=== PATIENT | male | born 1990 ===

== ENCOUNTER 2016-05-12 21:25 | Emergency (ER) | payer MEDICAID ==
[2016-05-12] MEDS ORDERED: IOPAMIDOL 370 (76%) 100 ML VIAL IV ONE (21:26)
[2016-05-12 22:27] LABS: BASO % 0.6 % (0.2-1.0); EOS # 0.1 (0.0-0.5); EOS % 1.4 % (0.9-2.9); HEMATOCRIT 49.1 % (32.0-52.0); HEMOGLOBIN 16.6 gm/l (14.0-18.0); IMM NEUT% 0.2 % (0-1); LYMPH # 2.3 (1.0-4.8); LYMPH % 46.9 % (15-45); MEAN CELL VOLUME 88.9 fl (80.0-94.0); MEAN CORPUSCULAR HEMOGLOBIN 30.1 pg (27.0-31.0); MEAN CORPUSCULAR HGB CONC 33.8 g/dl (33.0-37.0); MEAN PLATELET VOLUME 10.6 fl (7.4-10.4); MONO # 0.6 (0.0-0.8); MONO % 11.6 % (4-12); NEUT % 39.3 % (43-75); PLATELET COUNT 221 K/mm3 (130-400); RED CELL DISTRIBUTION WIDTH 12.5 % (11.5-14.5)
[2016-05-12 22:38] LABS: ALB/GLOB RATIO 1.2 (>1.0); ALBUMIN 4.9 gm/dL (3.5-5.7); CALCIUM 10.7 mg/dL (8.6-10.3)
[2016-05-12 22:38] LABS: SPECIFIC GRAVITY 1.025 (1.001-1.030); URINE BILIRUBIN NEGATIVE (NEGATIVE); URINE BLOOD NEGATIVE (NEGATIVE); URINE GLUCOSE (UA) NEGATIVE (NEGATIVE); URINE LEUKOCYTE ESTERASE NEGATIVE (NEGATIVE); URINE NITRITE NEGATIVE (NEGATIVE); URINE PROTEIN 1+ (NEGATIVE); URINE UROBILINOGEN NORMAL (0-1 mg/dl)
[2016-05-12 22:39] LABS: URINE APPEARANCE CLEAR; URINE COLOR YELLOW
[2016-05-12 22:58] LABS: AMPHETAMINES/METHAMPHETAMINES NEGATIVE (NEGATIVE); COCAINE NEGATIVE (NEGATIVE); MARIJUANA POSITIVE (NEGATIVE); METHADONE NEGATIVE (NEGATIVE); OPIATES NEGATIVE (NEGATIVE); TRICYCLIC ANTIDEPRESSANTS NEGATIVE (NEGATIVE)
[2016-05-12 23:04] LABS: URINE AMORPHOUS SEDIMENT 1+ URATES; URINE BACTERIA 0; URINE EPITHELIAL CELLS 0-2 /hpf; URINE RBC 0 /hpf; URINE WBC 0-2 /hpf
[2016-05-12] MEDS ORDERED: PANTOPRAZOLE SODIUM 40 MG VIAL IV ONE (23:54)
[2016-05-13] MEDS ORDERED: KETOROLAC TROMETHAMINE 30 MG/ML 1 ML VIAL ONE (01:11)
--- NOTE | 2016-05-13 07:32 | RAD ---
Exam: Two-view chest COMPARISON: None INDICATION: Sharp bilateral abdominal pain for one week. Pleuritic left lower chest pain. FINDINGS: PA and lateral views of the chest were obtained. Cardiac silhouette is within normal limits. Lungs are well-inflated. There is minor coarsening of the bronchovascular markings. There is no focal airspace disease or pleural effusion. Bones of the chest wall within normal limits. IMPRESSION: No acute pulmonary process.
--- NOTE | 2016-05-13 07:36 | CT ---
Exam: CT angiogram chest with contrast Comparison: Chest radiograph 05/13/[address] abdomen 12/13/2013 History: Pleuritic left-sided chest pain and elevated d-dimer. Patient describes sharp bilateral abdominal pain for one week. Technique: CT angiogram of the chest was obtained following the administration of 80 mL Isovue-370 intravenous contrast using a CT angiogram pulmonary embolism protocol which was supplemented with MIP reformations constructed at the CT workstation. Findings: There is no evidence of acute pulmonary thromboembolic disease through the proximal subsegmental level. There is mild diffuse bronchial wall thickening. No mucous plugging or atelectasis is seen. There is no focal airspace disease or pleural effusion. There is no significant mediastinal or hilar lymphadenopathy by size criteria; small bilateral hilar lymph nodes are noted, right greater than left, and are likely reactive. Mild bilateral gynecomastia. Limited evaluation of the upper abdomen demonstrates hepatic steatosis but is otherwise unremarkable. No worrisome lytic or blastic osseous lesion is identified. IMPRESSION: No evidence of acute pulmonary thromboembolic disease. Mild diffuse bronchial wall thickening without mucous plugging, atelectasis or consolidation. Preliminary report transmitted to the emergency department from [facility] at 0235 hours 05/13/2016.
== END 2016-05-13 02:59 | disposition home or self-care (01) ==
LOC: ED 21:25
DX: R09.1 Pleurisy (principal); F17.200 Nicotine dependence, unspecified, uncomplicated
CPT/HCPCS: 83690; 85379; 85025; 80305; 80053; 81001; 71020; 71275; 96375; 99284; 96374; 99283; C9113; J1885; Q9967